=== PATIENT | female | born 2000 | race Caucasian/White ===

== ENCOUNTER 2022-03-26 08:00 | Outpatient (CLI) | payer OTHER | END 2022-03-26 23:59 | disposition home or self-care (01) | LOC: LAB.N 08:00 | PROVIDERS: ATTEND Registered Nurse | DX: N94.6 Dysmenorrhea, unspecified (principal) | CPT/HCPCS: 36415; 84702 ==

== ENCOUNTER 2022-11-20 22:25 | Emergency (ER) | payer OTHER ==
[2022-11-20 22:36] VITALS: BP 126/73; O2SAT 100
--- NOTE | 2022-11-21 01:08 | XRAY Report ---
PROCEDURE: Hand 3 View LT INDICATIONS: Trauma TECHNIQUE: 3 views of the left hand acquired. COMPARISON: None. FINDINGS: Bones: No fractures or dislocations. No suspicious bony lesions. Soft tissues: No suspicious soft tissue calcifications or masses. IMPRESSION: 1. No acute bony abnormality. Reviewed by: Greyson Perez MD on 11/21/2022 1:06 AM PDT Approved by: Greyson Perez MD on 11/21/2022 1:06 AM PDT Station ID: [id number]
== END 2022-11-21 00:50 | disposition left against medical advice (07) ==
LOC: ED 22:25
DX: Z53.21 Procedure and treatment not carried out due to patient leaving prior to being seen by health care provider (principal)